=== PATIENT | male | born 1995 | race African-American/Black ===

== ENCOUNTER 2017-10-06 17:26 | Emergency (ER) | payer MEDICAID, OTHER ==
[~2017-10-06] VITALS: Ht 172.7 cm; Wt 59.0 kg
[~2017-10-06 17:26] MED LIST: AUGMENTIN 875-1 EAC1 ORAL; NORCO 5-325 TA1 EACH ORAL; no meds
[2017-10-06 17:30] VITALS: BP 100/64
[2017-10-06] MEDS ORDERED: Lidocaine 1% 10mg/ml/Epi 0.005mg/ml 30ml vial INJ ONE (17:45)
[2017-10-06] MEDS ORDERED: Hydrogen Peroxide 473ml Bottle TOPIC ONE (18:45)
[2017-10-06] MEDS ORDERED: IBUPROFEN600 MG ORAL (20:12)
[2017-10-06 20:18] VITALS: BP 109/68
[2017-10-06 20:24] VITALS: BP 109/68
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
--- NOTE | 2017-10-07 09:38 | Diagnostic Imaging Report ---
Indication: Trauma Technique: Continuous helical transaxial imaging of the maxillofacial structures obtained without intravenous contrast administration. Coronal 2-D reformats were also obtained. Study obtained in a Siemens sensation [address] Automatic Exposure Control was utilized. Total Dose length Product (DLP): 573.[address] Dose Index Volume (CTDIvol): 28.19 mGy Comparison: None Findings: There is no evidence of an acute fracture. Thickening demonstrated within the ethmoid sinus. No air-fluid level seen.. Soft tissues are unremarkable. Orbits are unremarkable. IMPRESSION: No acute injury. Sinusitis [facility] has communicated the preliminary results to the Emergency Department. Their findings are largely concordant with this report. The CT scanner at [facility] is accredited by the [employer] and the scans are performed using dose optimization techniques as appropriate to a performed exam including Automatic Exposure control.
--- NOTE | 2017-10-07 10:06 | Diagnostic Imaging Report ---
Indication: Headache Technique: Contiguous 5 mm thick transaxial imaging of the head obtained in a Siemens Sensation [address] scanner. Soft tissue and bone windows generated. Automatic Exposure Control was utilized. Total Dose length Product (DLP): 1446.[address] Dose Index Volume (CTDIvol): 70.38 mGy Comparison: none Findings: The size and configuration of the cortical sulci, basal cisterns, and ventricles are within normal limits for age. There is a 1.2 cm cystic focus demonstrated within the left temporal lobe. This may be a prominent perivascular space. Evaluation with MRI may be helpful and is suggested. Finding is probably incidental. There is no mass effect, midline shift, or edema identified. There is no evidence of acute hemorrhage or abnormal extra-axial fluid collections. The bones and soft tissues are unremarkable. Impression: No mass effect, edema or acute bleed. 1.2 cm cystic focus in the left medial temporal lobe. This is a probable Virchow-Fernando space and is likely incidental. Consider evaluation with MRI. [facility] has communicated the preliminary results to the Emergency Department. Their findings are largely concordant with this report. [place] [facility] [place] the [employer] and the scans are performed using dose optimization techniques as appropriate to a performed exam including Automatic Exposure control.
== END 2017-10-06 20:25 | disposition home or self-care (01) ==
LOC: EMR 17:54
DX: S01.01XA Laceration without foreign body of scalp, initial encounter (principal); S00.83XA Contusion of other part of head, initial encounter; S01.81XA Laceration without foreign body of other part of head, initial encounter; W01.0XXA Fall on same level from slipping, tripping and stumbling without subsequent striking against object, initial encounter; Y92.89 Other specified places as the place of occurrence of the external cause
CPT/HCPCS: 70450; 70486; 99284

== ENCOUNTER 2017-10-26 11:46 | Emergency (ER) | payer OTHER ==
[~2017-10-26] VITALS: Ht 170.2 cm; Wt 59.4 kg
[~2017-10-26 11:46] MED LIST changes: +IBUPROFEN600 MG ORAL
[2017-10-26 11:56] VITALS: BP 102/61
--- NOTE | 2017-10-26 12:06 | Emergency Room Report ---
History of Present Illness General Chief Complaint: Wound Recheck/Suture Removal Source: Patient Present Illness HPI 21-year-old male presents emergency department for suture removal as well as staple removal from laceration sustained to the scalp and the chin 2 weeks. Patient denies fevers, chills, bleeding, discharge, tenderness or pain. He is up-to-date with tetanus. Allergies: Coded Allergies: No Known Allergies (Unverified , 11/21/13) Patient History Past Medical History: see triage record Past Surgical History: none Pertinent Family History: none Immunizations: UTD Reviewed Nursing Documentation: PMH: Agreed; PSxH: Agreed Nursing Documentation-PMH Past Medical History: No Stated History Review of Systems All Other Systems: negative except mentioned in HPI Physical Exam Vital Signs Date Time Temp Pulse Resp B/P (MAP) Pulse Ox O2 Delivery O2 Flow Rate FiO2 10/26/17 11:50 98.2 80 17 102/61 99 Room Air 98.2 Sp02 EP Interpretation: reviewed, normal General Appearance: no apparent distress, alert, GCS 15, non-toxic Head: normocephalic, atraumatic - 2 stapled in the scalp ( top of head) no evidence of infection, dehiscence, or discharge. ENT: hearing grossly normal, normal voice Neck: full range of motion Respiratory: speaking full sentences Musculoskeletal: back normal, gait/station normal, normal range of motion, non- tender Neurologic: alert, oriented x3, responsive, motor strength/tone normal, sensory intact, normal gait, speech normal, grossly normal Psychiatric: judgement/insight normal Skin: normal color, no rash, warm/dry, well hydrated, wd healing/no infection noted - top of scalp - 2 daniel, chin- 3 sutures no erythema, discharge, or dehiscence noted. Medical Decision Making PA Attestation Dr. Dawkins is my supervising Physician whom patient management has been discussed with. Diagnostic Impression: Primary Impression: Encounter for removal of sutures ER Course 21-year-old male presents emergency department for suture removal as well as staple removal from laceration sustained to the scalp and the chin 2 weeks. Patient denies fevers, chills, bleeding, discharge, tenderness or pain. He is up-to-date with tetanus. Ddx considered but are not limited to laceration, tendon injury, cellulitis, dehiscence. Vital signs: are WNL, pt. is afebrile H&PE are most consistent with: healed laceration of the scalp and chin. ORDERS: none required at this time, the diagnosis is clinical ED INTERVENTIONS: - 2 Daniel removed from scalp - 3 Sutures removed from chin. DISCHARGE: At this time pt. is stable for d/c to home. Will provide printed patient care instructions, and any necessary prescriptions. Care plan and follow up instructions have been discussed with the patient prior to discharge. Last Vital Signs Date Time Temp Pulse Resp B/P (MAP) Pulse Ox O2 Delivery O2 Flow Rate FiO2 10/26/17 11:56 98.2 17 102/61 99 Room Air 98.2 10/26/17 11:50 80 Disposition: HOME, SELF-CARE Condition: Stable Scripts Bacitracin/Polymyxin B Sulfate (BACITRACIN-POLYMYXIN OINTMENT) 28.35 Gm Oint...g. 1 APPLIC TP BID, #28.3 GM Prov: Mouna Toscano 10/26/17 Patient Instructions: Wound Check Additional Instructions: Take medications as directed. Follow up with a Primary Care Provider in 3-5 days, even if your symptoms have resolved. --Please review list of primary care clinics, if you do not already have a primary care provider Return sooner to ED if new symptoms occur, or current symptoms become worse. - Please note that this Emergency Department Report was dictated using [employer] transcriptionist technology software, occasionally this can lead to erroneous entry secondary to interpretation by the dictation equipment. Mouna Toscano Oct 26, 2017 12:06
[2017-10-26] MEDS ORDERED: BACITRACIN-P28.35 GM TP (12:07)
[2017-10-26 12:10] VITALS: BP 102/61
== END 2017-10-26 12:10 | disposition home or self-care (01) ==
LOC: EMR 12:09
DX: S01.01XD Laceration without foreign body of scalp, subsequent encounter (principal); X58.XXXD Exposure to other specified factors, subsequent encounter; Z48.02 Encounter for removal of sutures
CPT/HCPCS: 99282